=== PATIENT | female | born 1975 | race Caucasian/White ===

== ENCOUNTER 2018-06-11 12:59 | Emergency (ER) | payer OTHER ==
[~2018-06-11] VITALS: Ht 157.5 cm; Wt 93.2 kg
[~2018-06-11 12:59] MED LIST: CEPHALEXIN500 M1 PO; NO HOME MEDICATIONS; NORCO 325 MG-51 TAB PO; PERCOCET 325 MG1 TA2 PO; PHENERGAN 25 TA25 MG PO; PHENERGAN25 MG RC
[2018-06-11 13:19] VITALS: BP 124/83; PULSE 82; TEMP 97.7
== END 2018-06-11 14:30 | disposition home or self-care (01) ==
LOC: COL.ER 12:59
DX: M79.672 Pain in left foot (principal)

== ENCOUNTER 2018-08-05 21:41 | Emergency (ER) | payer OTHER ==
[~2018-08-05] VITALS: Ht 157.5 cm; Wt 95.5 kg
[2018-08-05 21:48] VITALS: BP 174/103; TEMP 97.2
[2018-08-05 23:52] VITALS: PULSE 66
== END 2018-08-05 23:59 | disposition home or self-care (01) ==
LOC: COL.ER 21:41
DX: T23.131A Burn of first degree of multiple right fingers (nail), not including thumb, initial encounter (principal); T31.0 Burns involving less than 10% of body surface; X17.XXXA Contact with hot engines, machinery and tools, initial encounter; Y92.009 Unspecified place in unspecified non-institutional (private) residence as the place of occurrence of the external cause

== ENCOUNTER 2024-01-10 21:24 | Emergency (ER) | payer OTHER ==
[~2024-01-10] VITALS: Ht 157.5 cm; Wt 95.5 kg
[2024-01-10 21:34] VITALS: TEMP 97.2
[2024-01-10] MEDS ORDERED: Tdap Vaccine 0.5 ML SYRINGE IM ONE (23:15)
[2024-01-10] MEDS ORDERED: Acetaminophen 500 MG TAB PO ONE (23:30)
[2024-01-10] MEDS ORDERED: Ibuprofen 400 MG TAB PO ONE (23:30)
[2024-01-10 23:58] VITALS: BP 181/109; PULSE 84
== END 2024-01-10 23:58 | disposition home or self-care (01) ==
LOC: COL.ER 21:24
DX: S61.211A Laceration without foreign body of left index finger without damage to nail, initial encounter (principal); Z23 Encounter for immunization; W26.0XXA Contact with knife, initial encounter; Y92.009 Unspecified place in unspecified non-institutional (private) residence as the place of occurrence of the external cause